=== PATIENT | female | born 1975 | race Caucasian/White ===

== ENCOUNTER 2025-01-28 19:17 | Emergency (ER) | payer OTHER ==
[~2025-01-28] VITALS: Ht 157.5 cm; Wt 63.6 kg
[2025-01-28 19:34] VITALS: TEMP 97.8
[2025-01-28 20:36] LABS: BASOPHILS % (AUTO) 0.6 % (0.0-2.0); EOSINOPHILS % (AUTO) 1.9 % (1.0-6.0); HEMATOCRIT 43.3 % (36-46); HEMOGLOBIN 14.7 g/dL (12.0-16.0); LYMPHOCYTES # (AUTO) 3.5 K/uL (1.0-4.8); LYMPHOCYTES % (AUTO) 42.7 % (22.0-44.0); MEAN CORPUSCULAR HEMOGLOBIN 31.3 pg (26.0-34.0); MEAN CORPUSCULAR VOLUME 92 fL (80-100); MONOCYTES # (AUTO) 0.5 K/uL (0.1-1.0); MONOCYTES % (AUTO) 5.7 % (2.0-9.0); NEUTROPHILS # (AUTO) 4.1 K/uL (1.8-7.7); NEUTROPHILS % (AUTO) 49.1 % (40.0-70.0); PLATELET COUNT (AUTO) 170 K/uL (150-450); RED BLOOD CELL COUNT(AUTO) 4.69 MIL/uL (4.00-5.20); RED CELL DISTRIBUTION WIDTH 12.8 % (11.5-14.5); WHITE BLOOD COUNT (AUTO) 8.3 K/uL (4.5-11.0)
[2025-01-28 20:48] LABS: B-TYPE NATRIURETIC PEPTIDE 16 pg/mL (0-100)
[2025-01-28 20:54] LABS: TROPONIN I-HIGH SENSITIVITY 4 ng/L (<51)
[2025-01-28] MEDS ORDERED: HYDR-4808 PO (23:27)
[2025-01-28 23:30] VITALS: BP 122/75; PULSE 80; RESP 17; O2SAT 98
== END 2025-01-28 23:40 | disposition home or self-care (01) ==
LOC: EDBD 19:17 → EMS 19:17
DX: F41.0 Panic disorder [episodic paroxysmal anxiety] (principal); R00.2 Palpitations
CPT/HCPCS: 71045; 83880; 84484; 85025; 93005; 99285; 36415-L1; 36415-TC